=== PATIENT | female | born 1990 | race American Indian/Alaskan Native ===

== ENCOUNTER 2019-06-15 14:13 | Emergency (ER) | payer OTHER ==
--- NOTE | 2019-06-15 14:20 | Emergency Department Report ---
Blank Doc - Documentation Documentation: 29-year-old female that presents with vaginal discharge and pelvic pain. Stated is . This initial assessment/diagnostic orders/clinical plan/treatment(s) is/are subject to change based on patient's health status, clinical progression and re- assessment by fellow clinical providers in the ED. Further treatment and workup at subsequent clinical providers discretion. Patient/guardians urged not to elope from the ED as their condition may be serious if not clinically assessed and managed. Initial orders include: 1- Patient sent to [facility] for further evaluation and treatment 2- UA 3- US OB
[2019-06-15 14:21] VITALS: BP 120/70
[2019-06-15 15:46] LABS: Bilirubin,Urine NEG (Negative); Blood,Urine SM (Negative); Color,Urine Yellow (Yellow); Mucus,Urine FEW /HPF; Protein,Urine <15 mg/dL mg/dL (Negative); Urobilinogen,Urine < 2.0 mg/dL (<2.0)
--- NOTE | 2019-06-15 15:59 | Ultrasound Report ---
ULTRASOUND OBSTETRIC INDICATION / CLINICAL INFORMATION: pelvic pain. Clinical Gestational Age (GA): 18 weeks 1 day TECHNIQUE: Transabdominal and Transvaginal. COMPARISON: None available. FINDINGS: GESTATIONAL SAC: No intrauterine gestational sac identified. YOLK SAC: Not identified. EMBRYO/FETUS: No intrauterine identified. ADNEXA: Small complex cyst of the right ovary measuring 1.7 cm. FREE FLUID: Small amount of free fluid in the cul-de-sac. ADDITIONAL FINDINGS: None. IMPRESSION: 1. No intrauterine identified. 2. Small complex cyst of the right ovary measuring 1.7 cm. 3. No positive sonographic evidence for ectopic , but this cannot be excluded on the basis o f this examination. Clinical and laboratory follow-up is recommended. Signer Name: William Bryan MD Signed: 06/15/2019 3:55 PM Workstation Name: [id number]
--- NOTE | 2019-06-15 17:05 | Emergency Department Report ---
ED Female HPI - General Chief complaint: Abdominal Pain Stated complaint: /STOMACH PELVIC PAIN Time Seen by Provider: 06/15/19 14:18 Source: patient Mode of arrival: Ambulatory Limitations: No Limitations - History of Present Illness Initial comments: This is a 29-year-old -[place] female who presents to the emergency room with lower abdominal pain for a few days. Patient states she took a home test which was positive for a few days ago. She has not followed up with her [facility]. She reports hematuria. Her last menstrual period was 04/19/2019, . She denies urinary frequency, urgency, dysuria, back pain, chest pain, or shortness of breath. MD Complaint: pelvic pain Onset/Timin -: days(s) Location: suprapubic Radiation: non-radiating Severity: moderate Severity scale (0 -10): 4 Quality: cramping Consistency: intermittent Improves with: none Worsens with: none Are you Now?: No Last Menstrual Period: 04/19/19 EDC: 01/24/20 Associated Symptoms: denies other symptoms - Related Data Sexually active: Yes : 1 Para: 0 A: 0 Previous Rx's Medication Instructions Recorded Last Taken Type Fluconazole [Diflucan] 150 mg PO QDAY #1 tablet 02/10/14 Unknown Rx metroNIDAZOLE [Flagyl] 500 mg PO BID #14 tablet 02/10/14 Unknown Rx Allergies Allergy/AdvReac Type Severity Reaction Status Date / Time No Known Allergies Allergy Unverified 02/10/14 18:06 ED Review of Systems ROS: Stated complaint: /STOMACH PELVIC PAIN Other details as noted in HPI Constitutional: denies: chills, fever Respiratory: denies: cough, shortness of breath, wheezing Cardiovascular: denies: chest pain, palpitations Gastrointestinal: abdominal pain. denies: nausea, diarrhea Musculoskeletal: denies: back pain, joint swelling, arthralgia Skin: denies: rash, lesions Neurological: denies: headache, weakness, paresthesias Psychiatric: denies: anxiety, depression ED Past Medical Hx - Past Medical History Previous Medical History?: No Hx Tuberculosis: No - Surgical History Past Surgical History?: No - Social History Smoking Status: Never Smoker Substance Use Type: None - Medications Home Medications: Home Medications Medication Instructions Recorded Confirmed Last Taken Type Fluconazole [Diflucan] 150 mg PO QDAY #1 tablet 02/10/14 Unknown Rx metroNIDAZOLE [Flagyl] 500 mg PO BID #14 tablet 02/10/14 Unknown Rx ED Physical Exam - General Limitations: No Limitations General appearance: alert, in no apparent distress - Respiratory Respiratory exam: Present: normal lung sounds bilaterally. Absent: respiratory distress - Cardiovascular Cardiovascular Exam: Present: regular rate, normal rhythm. Absent: systolic murmur, diastolic murmur, rubs, gallop - GI/Abdominal GI/Abdominal exam: Present: soft, tenderness (left lower quadrant), normal bowel sounds. Absent: distended, guarding, rebound, rigid, organomegaly - Back Exam Back exam: Absent: CVA tenderness (R), CVA tenderness (L) - Neurological Exam Neurological exam: Present: alert, oriented X3 - Psychiatric Psychiatric exam: Present: normal affect, normal mood - Skin Skin exam: Present: warm, dry, intact, normal color. Absent: rash ED Course Vital Signs 06/15/19 14:18 Temperature 98.6 F Pulse Rate 71 Respiratory 18 Rate Blood Pressure 120/70 O2 Sat by Pulse 99 Oximetry ED Medical Decision Making - Lab Data Lab Results 06/15/19 06/15/19 Range/Units 15:08 Unknown HCG, Quant 977.1 H (0-4) mIU/mL Urine Color Yellow (Yellow) Urine Turbidity Clear (Clear) Urine pH 5.0 (5.0-7.0) Ur Specific Helen 1.026 (1.003-1.030) Urine Protein <15 mg/dl (Negative) mg/dL Urine Glucose (UA) Neg (Negative) mg/dL Urine Ketones Neg (Negative) mg/dL Urine Blood Sm (Negative) Urine Nitrite Neg (Negative) Urine Bilirubin Neg (Negative) Urine Urobilinogen < 2.0 (<2.0) mg/dL Ur Leukocyte Esterase Neg (Negative) Urine WBC (Auto) 1.0 (0.0-6.0) /HPF Urine RBC (Auto) 3.0 (0.0-6.0) /HPF U Epithel Cells (Auto) 2.0 (0-13.0) /HPF Urine Mucus Few /HPF - Radiology Data Radiology results: report reviewed ULTRASOUND OBSTETRIC INDICATION / CLINICAL INFORMATION: pelvic pain. Clinical Gestational Age (GA): 18 weeks 1 day TECHNIQUE: Transabdominal and Transvaginal. COMPARISON: None available. FINDINGS: GESTATIONAL SAC: No intrauterine gestational sac identified. YOLK SAC: Not identified. EMBRYO/FETUS: No intrauterine identified. ADNEXA: Small complex cyst of the right ovary measuring 1.7 cm. FREE FLUID: Small amount of free fluid in the cul-de-sac. ADDITIONAL FINDINGS: None. IMPRESSION: 1. No intrauterine identified. 2. Small complex cyst of the right ovary measuring 1.7 cm. 3. No positive sonographic evidence for ectopic , but this cannot be excluded on the basis of this examination. Clinical and laboratory follow-up is recommended. - Medical Decision Making Patient was examined by me. Patient is nontoxic appearing and stable. Vitals are normal. Obtained labs and OB ultrasound. A UA small amount of blood, no other signs indicating infection or dehydration. HCG Quant is 977.1. 1. No intrauterine identified. 2. Small complex cyst of the right ovary measuring 1.7 cm. 3. No positive sonographic evidence for ectopic , but this cannot be excluded on the basis of this examination. Clinical and laboratory follow-up is recommended. There is small amount of blood on UA. Patient informed of results. Instructed to have repeat hCG in 48 hours to r/o ectopic . Referral given to OBGYN. Patient discharged home in stable condition. Critical care attestation.: If time is entered above; I have spent that time in minutes in the direct care of this critically ill patient, excluding procedure time. ED Disposition Clinical Impression: Threatened miscarriage in early , Hematuria Abdominal pain Qualifiers: Abdominal location: lower abdomen, unspecified Qualified Code(s): R10.30 - Lower abdominal pain, unspecified Disposition: TO HOME OR SELFCARE Is pt being admited?: No Condition: Stable Instructions: Threatened Miscarriage (ED), Abdominal Pain (ED) Additional Instructions: Have a repeat hCG Quant level drawn by [facility] or return to emergency room to rule out miscarriage. Return to the emergency room a few experience heavy bleeding, passing blood clots, abdominal pain, and back pain. Referrals: [facility] [Provider Group] - 3-5 Days [facility] [Provider Group] - 3-5 Days [facility] [Provider Group] - 3-5 Days Forms: Work/School Release Form(ED) Time of Disposition: 17:25
== END 2019-06-15 17:42 | disposition home or self-care (01) ==
LOC: ED 14:13
DX: O20.0 Threatened abortion (principal); Z3A.18 18 weeks gestation of pregnancy
CPT/HCPCS: 36415; 76801; 76817; 81001; 84702